=== PATIENT | female | born 1990 | race African-American/Black ===

== ENCOUNTER 2017-05-15 15:14 | Emergency (ER) | payer OTHER ==
[~2017-05-15] VITALS: Ht 154.9 cm; Wt 46.0 kg
[~2017-05-15 15:14] MED LIST: MACROBID100 MG PO; MOTRIN600 MG PO; PRENATAL TABLE1 EAC3 PO; PROMETHAZINE HC25 M1 PO
[2017-05-15 15:52] LABS: HEMATOCRIT 38.3 % (36.0-46.0); MCH 28.6 PG (29.0-34.0); MCHC 33.9 G/DL (30.0-36.0); MCV 84.2 FL (83-99); PLATELET COUNT 336 K/uL (156-360); RBC DIS.WIDTH-CV 13.4 % (11.8-14.6); RBC DIS.WIDTH-SD 41.2 % (39-53); RED BLOOD COUNT 4.55 M/uL (3.80-5.20); WHITE BLOOD COUNT 6.8 K/uL (4.1-10.2)
[2017-05-15 16:01] LABS: ALBUMIN 4.4 g/dL (3.2-4.8); CHLORIDE 106 mEq/L (99-109); POTASSIUM 3.9 mEq/L (3.7-5.4); SODIUM 140 mEq/L (136-147)
[2017-05-15 16:03] LABS: GLUCOSE 85 mg/dL (70-99); TOTAL PROTEIN 8.3 g/dL (6.4-8.3)
[2017-05-15 16:05] LABS: TOTAL BILIRUBIN 0.5 mg/dL (0.0-1.0)
[2017-05-15 16:07] LABS: ALKALINE PHOSPHATASE 83 IU/L (3-129); CREATININE 0.8 mg/dL (0.6-1.3); GFR ESTIMATE (CALCULATED) > 59 mL/min/
[2017-05-15 16:08] LABS: UREA NITROGEN (BUN) 14 mg/dL (9-23)
[2017-05-15 16:09] LABS: AST (GOT) 20 IU/L (2-34)
[2017-05-15 16:10] LABS: ALT (GPT) 18 IU/L (3-49)
[2017-05-15 16:25] LABS: QUANTITATIVE HCG < 4.0 MIU/ML
[2017-05-15 17:19] LABS: APPEARANCE CLEAR ((CLEAR)); BILIRUBIN NEGATIVE; BLOOD NEGATIVE; COLOR YELLOW ((YELLOW)); GLUCOSE (STRIP) NEGATIVE; KETONES NEGATIVE; LEUKOCYTES NEGATIVE; NITRITE NEGATIVE; PROTEIN (STRIP) NEGATIVE; SPECIFIC GRAVITY 1.012 (1.000-1.030); UCUL ADDED? NO; UROBILINOGEN 0.2 MG/DL (0.2-1.0)
[2017-05-15] MEDS ORDERED: MOTRIN600 MG PO (20:04)
[2017-05-15 20:12] VITALS: BP 118/77
== END 2017-05-15 20:14 | disposition home or self-care (01) ==
LOC: EME 15:14
DX: S39.011A Strain of muscle, fascia and tendon of abdomen, initial encounter (principal); X58.XXXA Exposure to other specified factors, initial encounter
CPT/HCPCS: 76856; 80053; 81003; 84702; 85027; 99281; 99284